=== PATIENT | male | born 1980 | race African-American/Black ===

== ENCOUNTER 2017-01-03 09:34 | Emergency (ER) | payer OTHER ==
[~2017-01-03] VITALS: Ht 172.7 cm; Wt 79.0 kg
[~2017-01-03 09:34] MED LIST: BACT800T5 PO; CEPH-460 PO; CEPH500C3 PO; CLOTCRE17 TOP; HYDR-3133 PO; NYST10007 TOPICAL
[2017-01-03 09:36] VITALS: BP 124/72; PULSE 62; RESP 14; TEMP 98.2; O2SAT 99
[2017-01-03] MEDS ORDERED: IBUP800T23 PO (10:12)
--- NOTE | 2017-01-03 10:13 | PD ---
HPI Chief Complaint: Laceration/Skin Injury Time Seen by Provider: 10:11 Travel History International Travel<30 days: No Contact w/Intl Traveler<30days: No Traveled to known affect area: No History of Present Illness HPI 36-year-old male presents to emergency department complaining of a laceration to his left thumb from a razor blade while at work today. Medical records show patient's last tetanus was in 2014. Denies paresthesias, loss of sensation, decreased motion, decreased strength to the affected finger. Has not taken any medications to alleviate her symptoms. A bandage is applied and bleeding is controlled. Has no other medical complaints. Symptoms are mild in severity. No other modifying factors or associated signs and symptoms. PFSH Past Surgical History Other Surgery: Yes (RIGTH 5TH FINGER) Social History Alcohol Use: Yes Tobacco Use: Yes (PPD) Substance Use: No Allergies-Medications (Allergen,Severity, Reaction): Coded Allergies: *MDRO Multi-Drug Resistant Organism (Unverified Adverse Reaction, Unknown , 03/09/16) MRSA Reported Meds & Prescriptions Reported Meds & Active Scripts Active Ibuprofen 800 Mg Tab 800 Mg PO Q6HR PRN Keflex (Cephalexin) 500 Mg Cap 500 Mg PO Q6H 5 Days Bactrim DS (Sulfamethoxazole-Trimethoprim) 800-160 Mg Tab 1 Tab PO BID Nystop Topical (Nystatin Topical) 100,000 Unit/Gm Powd 1 Applic TOPICAL Q12HR Review of Systems Except as stated in HPI: all other systems reviewed are Neg Physical Exam Narrative GENERAL: Well-nourished, well-developed black male patient, in no acute distress SKIN: Warm and dry. Palmar aspect of distal left thumb with approximately 0.5 cm superficial laceration; finger with full range of motion and sensory intact; good opposition; 2+ radial pulse. HEAD: Atraumatic. Normocephalic. EYES: Pupils equal and round. No scleral icterus. No injection or drainage. ENT: Mucosa pink and moist. Airway patent. NECK: Trachea midline. CARDIOVASCULAR: Regular rate. RESPIRATORY: No accessory muscle use. GASTROINTESTINAL: Flat. MUSCULOSKELETAL: No obvious deformities. No clubbing. No cyanosis. No edema. NEUROLOGICAL: Awake and alert. Oriented 3. No obvious cranial nerve deficits. Motor grossly within normal limits. Normal speech. PSYCHIATRIC: Appropriate mood and affect; insight and judgment normal. Data Data Last Documented VS Vital Signs Date Time Temp Pulse Resp B/P (MAP) Pulse Ox O2 Delivery O2 Flow Rate FiO2 01/03/17 10:28 01/03/17 09:36 98.2 62 14 99 Orders Orders Wound Care (01/03/17 10:13) MDM Medical Decision Making Medical Screen Exam Complete: Yes Emergency Medical Condition: Yes Medical Record Reviewed: Yes Differential Diagnosis cut, laceration, abrasion Narrative Course 36-year-old male with a superficial laceration to the left thumb. Tetanus is up -to-date. See procedure note laceration repair. Instructed patient to follow up with primary care provider. Patient verbalizes understanding and agreement with treatment plan. Patient is medically cleared and stable for discharge. Discussed reasons to return to the emergency department. Patient agrees with treatment plan. The patients vital signs are stable and the patient is stable for outpatient follow-up and treatment. Patient discharged home, stable and in no acute distress. Procedures Procedure Narrative LACERATION LOCATION: N[place], distal left thumb LENGTH: 0.5 cm Dermabond was used to repair the laceration REPAIR: The area of the laceration was cleaned with normal saline. The wound was copiously irrigated and explored without evidence of foreign body. The wound was closed using Dermabond. This was a single layer repair. A sterile dressing was applied. The patient was advised to keep the dressing clean and dry. Patient tolerated the procedure well. Diagnosis Primary Impression: Laceration of left thumb Qualified Codes: S61.012A - Laceration without foreign body of left thumb without damage to nail, initial encounter Referrals: [facility] Primary Care Physician Patient Instructions: Finger Laceration (ED), General Instructions Additional Instructions: Keep area clean and dry Follow-up with primary care provider Return to the emergency department immediately if worsening of symptoms Med/Other Pt SpecificInfo: Prescription(s) given Scripts Ibuprofen (Ibuprofen) 800 Mg Tab 800 MG PO Q6HR Y for PAIN, #30 TAB 0 Refills Prov: Liz Rich 01/03/17 Disposition: 01 DISCHARGE HOME Condition: Stable Liz Rich Jan 03, 2017 10:13
== END 2017-01-03 10:40 | disposition home or self-care (01) ==
LOC: NEPK 09:34
DX: S61.012A Laceration without foreign body of left thumb without damage to nail, initial encounter (principal); F17.200 Nicotine dependence, unspecified, uncomplicated; W27.8XXA Contact with other nonpowered hand tool, initial encounter; Z79.899 Other long term (current) drug therapy
CPT/HCPCS: 12001

== ENCOUNTER 2017-06-18 11:13 | Emergency (ER) | payer OTHER ==
[~2017-06-18] VITALS: Ht 170.2 cm; Wt 68.0 kg
[~2017-06-18 11:13] MED LIST changes: -CEPH500C3 PO; -CLOTCRE17 TOP; -HYDR-3133 PO; +IBUP1TAB7 PO
[2017-06-18 11:22] VITALS: BP 136/97; PULSE 73; RESP 15; TEMP 98.2; O2SAT 98
--- NOTE | 2017-06-18 11:52 | RADRPT ---
EXAM DATE/TIME: 06/18/2017 11:38 [facility] COMPARISON: No previous studies available for comparison. INDICATIONS : Right posterior hand and 2nd finger pain, hit door frame MEDICAL HISTORY : Previous injury to right 5th finger, unable to straighten SURGICAL HISTORY : None. ENCOUNTER: Initial ACUITY: 2 days PAIN SCORE: 10/10 LOCATION: Right Hand FINDINGS: Bone density is normal. The osseous structures of the 2nd digit are in normal alignment. No evidenc e of fracture, periosteal reaction or soft tissue mass. In the 5th digit, there is a flexion deformi ty of the MCP joint. No radiopaque foreign bodies. CONCLUSION: Osseous structures of the 2nd digit are grossly intact. Francisco Arredondo MD on June 18, 2017 at 11:49 Board Certified Radiologist. This report was verified electronically.
--- NOTE | 2017-06-18 11:55 | PD ---
HPI Chief Complaint: Injury Time Seen by Provider: 11:29 Travel History International Travel<30 days: No Contact w/Intl Traveler<30days: No Traveled to known affect area: No History of Present Illness HPI 37-year-old male presents emergency department with right dorsal hand pain and swelling with localized erythema. Patient states he hit a wall with the hand 2 days ago and since has gotten worse with increased swelling , pain, warmth and erythema. Is a small abrasion to the MIP joint of the index finger on the right hand. He denies fever, chills, or other symptoms. He has a previous fracture of the right pinky years ago. Patient has history of MRSA. 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 Pain is currently about a 7 out of 10. He has no known drug allergies. PFSH Past Medical History Diminished Hearing: No Past Surgical History Other Surgery: Yes (RIGTH 5TH FINGER) Social History Alcohol Use: No Tobacco Use: Yes (1/2PPD) Substance Use: No Allergies-Medications (Allergen,Severity, Reaction): Coded Allergies: *MDRO Multi-Drug Resistant Organism (Unverified Adverse Reaction, Unknown , 03/09/16) MRSA Reported Meds & Prescriptions Reported Meds & Active Scripts Active Ibuprofen 800 Mg Tab 800 Mg PO Q6HR PRN Keflex (Cephalexin) 500 Mg Cap 500 Mg PO Q6H 5 Days Bactrim DS (Sulfamethoxazole-Trimethoprim) 800-160 Mg Tab 1 Tab PO BID Nystop Topical (Nystatin Topical) 100,000 Unit/Gm Powd 1 Applic TOPICAL Q12HR Review of Systems Except as stated in HPI: all other systems reviewed are Neg General / Constitutional: No: Fever Eyes: No: Visual changes HENT: No: Headaches Cardiovascular: No: Chest Pain or Discomfort Respiratory: No: Shortness of Breath Gastrointestinal: No: Abdominal Pain Genitourinary: No: Dysuria Musculoskeletal: Positive: Arthralgias, Limited ROM, Pain Skin: Positive Lesions, No Rash Neurologic: No: Weakness Psychiatric: No: Depression Endocrine: No: Polydipsia Hematologic/Lymphatic: No: Easy Bruising Physical Exam Narrative GENERAL: Patient is in mild distress per SKIN: Warm and dry. Generally normal color. Normal turgor. No rash. Patient has a small superficial abrasion to the right dorsal MIP joint of the index finger. There is localized swelling, erythema, and induration noted. Which measures approximately 5 cm in diameter. No obvious abscess or drainage is noted. There is no proximal streaking HEAD: Atraumatic. Normocephalic. EYES: Pupils equal and round. No scleral icterus. No injection or drainage. ENT: No nasal bleeding or discharge. Mucous membranes pink and moist. Pharynx is clear. Airways patent NECK: Trachea midline. Supple and nontender. CARDIOVASCULAR: Regular rate and rhythm. RESPIRATORY: No accessory muscle use. Clear to auscultation. Breath sounds equal bilaterally. GASTROINTESTINAL: Abdomen soft, non-tender, nondistended. Hepatic and splenic margins not palpable. MUSCULOSKELETAL: Extremities without clubbing, cyanosis, or edema. No obvious deformities. Decreased range of motion of the right hand secondary to pain. X- rays ordered. NEUROLOGICAL: Awake and alert. No obvious cranial nerve deficits. Motor grossly within normal limits. Five out of 5 muscle strength in the arms and legs. Normal speech. PSYCHIATRIC: Appropriate mood and affect; insight and judgment normal. Data Data Last Documented VS Vital Signs Date Time Temp Pulse Resp B/P (MAP) Pulse Ox O2 Delivery O2 Flow Rate FiO2 06/18/17 11:22 98.2 73 15 136/97 (110) 98 Orders Orders Hand, Complete ([id number]) (06/18/17 11:29) Ice/Cold Pack (06/18/17 11:29) MDM Medical Decision Making Medical Screen Exam Complete: Yes Emergency Medical Condition: Yes Differential Diagnosis Contusion. Fracture. Cellulitis. Abrasion. Narrative Course X-rays negative for acute fracture. Patient will be treated for cellulitis with Bactrim DS twice daily 7 days. Patient also given Keflex 500 mg 3 times daily 7 days per Patient is given ibuprofen 800 mg 3 times daily with food for pain #30 Patient to use warm compresses and soaks, and follow-up if symptoms worsen as discussed Diagnosis Primary Impression: Cellulitis Qualified Codes: L03.113 - Cellulitis of right upper limb Additional Impression: Dysuria Patient Instructions: Cellulitis (ED), General Instructions Additional Instructions: X-rays negative for acute fracture. Patient will be treated for cellulitis with Bactrim DS twice daily 7 days. Patient also given Keflex 500 mg 3 times daily 7 days per Patient is given ibuprofen 800 mg 3 times daily with food for pain #30 Patient to use warm compresses and soaks, and follow-up if symptoms worsen as discussed Med/Other Pt SpecificInfo: Prescription(s) given Disposition: 01 DISCHARGE HOME Condition: Stable Dany Delatorre Jun 18, 2017 11:55
[2017-06-18] MEDS ORDERED: BACT800T5 PO (11:56)
[2017-06-18] MEDS ORDERED: IBUP1TAB7 PO (11:56)
[2017-06-18] MEDS ORDERED: CEPH-460 PO (11:56)
== END 2017-06-18 12:12 | disposition home or self-care (01) ==
LOC: NEPK 11:13
DX: L03.113 Cellulitis of right upper limb (principal); R30.0 Dysuria; F17.200 Nicotine dependence, unspecified, uncomplicated
CPT/HCPCS: 73130; 99283